=== PATIENT | female | born 1980 | race Caucasian/White ===

== ENCOUNTER 2024-08-01 10:20 | Day surgery (SDC) | payer MEDICARE, MEDICAID ==
[~2024-08-01] VITALS: Ht 172.7 cm; Wt 123.0 kg
[2024-08-01] VITALS (13 sets, daily range): BP systolic 120–186; BP diastolic 70–93; PULSE 80–107; RESP 10–27; TEMP 98.8; O2SAT 98–100
[2024-08-01] MEDS ORDERED: METO-411 PO (11:11)
[2024-08-01] MEDS ORDERED: BUDE0.5A11 IH (11:11)
[2024-08-01] MEDS ORDERED: CLOP75TA34 PO (11:11)
[2024-08-01] MEDS ORDERED: METF-900 PO (11:11)
[2024-08-01] MEDS ORDERED: DULO60CA65 PO (11:11)
[2024-08-01] MEDS ORDERED: ALBU90AE3 INH (11:11)
[2024-08-01] MEDS ORDERED: TIZA-205 PO (11:11)
[2024-08-01] MEDS ORDERED: TOPI-95 PO (11:11)
[2024-08-01] MEDS ORDERED: ATOR40TA PO (11:11)
[2024-08-01] MEDS ORDERED: ACET-1025 PO (11:13)
[2024-08-01] MEDS: MIDAZolam 1mg/ml 10ml vial IV ONE (13:54)
[2024-08-01] MEDS: fentaNYL/PF 50MCG/1 ML 2ML syringe IV ONE (13:55)
[2024-08-01] MEDS: normal saline 1000ml 1,000 ML IV SCH (13:55)
== END 2024-08-01 15:30 | disposition home or self-care (01) ==
LOC: SSTAY O 10:20
PROVIDERS: ATTEND Internal Medicine Interventional Cardiology
DX: Q21.12 Patent foramen ovale (principal); E11.9 Type 2 diabetes mellitus without complications; E78.00 Pure hypercholesterolemia, unspecified; J45.909 Unspecified asthma, uncomplicated; G40.909 Epilepsy, unspecified, not intractable, without status epilepticus; Z86.73 Personal history of transient ischemic attack (TIA), and cerebral infarction without residual deficits; Z79.02 Long term (current) use of antithrombotics/antiplatelets; Z79.1 Long term (current) use of non-steroidal anti-inflammatories (NSAID); Z79.84 Long term (current) use of oral hypoglycemic drugs; Z79.899 Other long term (current) drug therapy; Z98.890 Other specified postprocedural states; Z88.2 Allergy status to sulfonamides; Z88.8 Allergy status to other drugs, medicaments and biological substances
CPT/HCPCS: 82948; 93325; 94760; C8925; J2250; J3010; J7030; 93312

== ENCOUNTER 2024-09-14 10:04 | Outpatient (CLI) | payer MEDICARE, MEDICAID ==
[~2024-09-14 10:04] MED LIST: ACET-1025 PO; ALBU90AE3 INH; ATOR40TA PO; BUDE0.5A11 IH; CLOP75TA34 PO; DULO60CA65 PO; METF-900 PO; METO-411 PO; TIZA-205 PO; TOPI-95 PO
== END 2024-09-14 23:59 | disposition home or self-care (01) ==
LOC: RAD 10:04
PROVIDERS: ATTEND Student in an Organized Health Care Education/Training Program
DX: E04.9 Nontoxic goiter, unspecified (principal); J98.4 Other disorders of lung; Z86.73 Personal history of transient ischemic attack (TIA), and cerebral infarction without residual deficits
CPT/HCPCS: 71250